=== PATIENT | female | born 1950 | race Hispanic/Latino ===

== ENCOUNTER 2023-12-22 06:42 | Day surgery (SDC) | payer OTHER, MEDICARE ==
[2023-12-18 09:52] VITALS: BP 170/80; PULSE 73; RESP 18
[2023-12-18 10:12] LABS: BASOPHILS # (AUTO) 0.02 K/uL (0.00-0.20); BASOPHILS % (AUTO) 0.3 % (0.0-5.0); EOSINOPHILS # (AUTO) 0.29 K/uL (0.00-0.70); EOSINOPHILS % (AUTO) 4.7 % (0.0-8.0); HEMATOCRIT 40.5 % (36-48); IMMATURE GRANULOCYTE ABSOLUTE 0.02 K/uL (0-1); LYMPHOCYTES # (AUTO) 1.9 K/uL (1.0-4.8); LYMPHOCYTES % (AUTO) 29.7 % (21.0-51.0); MEAN CORPUSCULAR HEMOGLOBIN 24.8 pg (27.0-33.0); MEAN CORPUSCULAR HGB CONC 31.6 g/dL (32.0-36.0); MEAN CORPUSCULAR VOLUME 78.5 fL (79-99); MONOCYTES # (AUTO) 0.4 K/uL (0.1-1.0); MONOCYTES % (AUTO) 7.1 % (3.0-13.0); NEUTROPHILS # (AUTO) 3.6 K/uL (1.8-7.7); NEUTROPHILS % (AUTO) 57.9 % (40.0-77.0); PLATELET COUNT (AUTO) 224 K/uL (130-400); RED BLOOD CELL COUNT(AUTO) 5.16 MIL/uL (4.00-5.50); RED CELL DISTRIBUTION WIDTH 15.8 % (11.0-15.5); WHITE BLOOD COUNT (AUTO) 6.2 K/uL (4.8-10.8)
[2023-12-18 10:23] LABS: CREATININE 0.7 mg/dL (0.5-1.0); POTASSIUM 4.6 mmol/L (3.5-5.1)
[2023-12-18 10:27] LABS: INR <= 0.93 (0.85-1.15); PROTHROMBIN TIME 10.8 SEC (9.6-11.6)
[2023-12-18 10:28] LABS: PARTIAL THROMBOPLASTIN TIME 28.6 SEC (26.3-35.5)
[2023-12-18 10:30] LABS: APPEARANCE,URINE CLEAR (CLEAR); BILIRUBIN,URINE NEGATIVE (NEGATIVE); COLOR,URINE COLORLESS (YELLOW); GLUCOSE, URINE (UA) >=1000 mg/dL (NEGATIVE); KETONES,URINE NEGATIVE (NEGATIVE); LEUKOCYTE ESTERASE ,URINE NEGATIVE Leu/uL (NEGATIVE); NITRATE,URINE NEGATIVE (NEGATIVE); OCCULT BLOOD,URINE NEGATIVE (NEGATIVE); PH,URINE 7.5 (5.0-8.0); PROTEIN,URINE NEGATIVE (NEGATIVE); UROBILINOGEN,URINE 0.2 mg/dL (0.2-1.0)
[2023-12-18 10:31] LABS: ADD UA MICROSCOPIC YES
[2023-12-18 10:32] LABS: RBC,URINE 0-1 /HPF (0-1); SQUAMOUS EPITHELIAL CELL,UR RARE /HPF (0-2); WBC,URINE 0-1 /HPF (0-1)
[2023-12-18 10:54] LABS: B-TYPE NATRIURETIC PEPTIDE 309 pg/mL (0-100)
[2023-12-22] VITALS (9 sets, daily range): BP systolic 137–200; BP diastolic 61–88; PULSE 69–77; RESP 15–17
[~2023-12-22] VITALS: Ht 147.3 cm; Wt 62.1 kg
[~2023-12-22 06:42] MED LIST: AEC81 PO; ATOR40TA69 PO; EMPA10TA PO; FAMO40TA7 PO; FURO40TA5 PO; ISOS30TA92 PO; LOSA100T59 PO; METO-409 PO; SEMA1PEN3 SQ; TRAM-355 PO
[2023-12-22] MEDS: 0.9%NACL 1000ML 1,000 ML IV ONE (07:28)
[2023-12-22] MEDS ORDERED: MIDAZOLAM HCL 1 MG/ML 2ML VIAL ONE (10:38)
[2023-12-22] MEDS ORDERED: FENTANYL CITRATE PF 50 MCG/1 ML 2ML VIAL ONE (10:38)
[2023-12-22] MEDS ORDERED: LIDOCAINE HCL 400MG/20ML VIAL ONE (10:38)
[2023-12-22] MEDS ORDERED: BIVALIRUDIN 250 MG/VIAL IV ONE (10:39)
[2023-12-22] MEDS ORDERED: HEPARIN 10,000 UNIT/10ML (1,000 UNIT/ML) VIAL ONE (10:39)
[2023-12-22] MEDS ORDERED: NITROGLYCERIN 50MG VIAL ONE (10:39)
[2023-12-22] MEDS ORDERED: IOHEXOL 350 MG/ML 100ML INFUS..BTL IV ONE (10:41)
[2023-12-22] MEDS ORDERED: IOHEXOL-350 50ML VIAL IV ONE ×2 (11:33→12:01)
[2023-12-22] MEDS ORDERED: LABETALOL 20MG SYG IV ONE (11:54)
[2023-12-22] MEDS ORDERED: DEXTROSE 50%-WATER 50 ML DISP.SYRIN IV PRN (12:30)
[2023-12-22] MEDS ORDERED: GLUCAGON 1MG KIT 1 MG ML IM PRN (12:30)
[2023-12-22] MEDS ORDERED: 0.9%NACL 1000ML 1,000 ML IV SCH (12:30)
[2023-12-22] MEDS ORDERED: LABETALOL 20MG SYG IV PRN (13:30)
[2023-12-22] MEDS ORDERED: INSULIN HUMULIN R 100 UNIT/ML 3ML SQ SCH (16:30)
== END 2023-12-22 16:20 | disposition home or self-care (01) ==
LOC: DAH 06:42
PROVIDERS: ATTEND Internal Medicine Cardiovascular Disease
DX: I25.119 Atherosclerotic heart disease of native coronary artery with unspecified angina pectoris (principal); I35.0 Nonrheumatic aortic (valve) stenosis; I10 Essential (primary) hypertension; E78.00 Pure hypercholesterolemia, unspecified; E11.9 Type 2 diabetes mellitus without complications; Z79.82 Long term (current) use of aspirin; Z79.84 Long term (current) use of oral hypoglycemic drugs; Z79.01 Long term (current) use of anticoagulants; Z79.899 Other long term (current) drug therapy
CPT/HCPCS: 80048; 83880; 85025; 85610; 85730; 81001; 36415; 71045; 93005; 93460; 82948 ×2; Q9965; C1769; C1894 ×2; C1760; C1893; J3010; J3490 ×2; J7030; J2250; J1644; Q9967 ×3; A4215 ×2; A4222 ×2; A4663 ×2; A4216 ×2; A4223 ×6; A4221 ×2; A4606 ×2; 96360; 96361; 99156; 99157; J0583